=== PATIENT | male | born 1980 | race Caucasian/White ===

== ENCOUNTER 2016-08-18 02:15 | Emergency (ER) | payer MEDICAID ==
[2016-08-18] MEDS ORDERED: ASPIRIN 81 MG CHEW TAB ONE (02:35)
[2016-08-18] MEDS ORDERED: DUONEB INH ONE ×2 (03:19→03:20)
== END 2016-08-18 06:13 | disposition home or self-care (01) ==
LOC: ER 02:15
DX: R09.1 Pleurisy (principal); J44.1 Chronic obstructive pulmonary disease with (acute) exacerbation; F17.290 Nicotine dependence, other tobacco product, uncomplicated
CPT/HCPCS: 36415; 71010; 80053; 82550; 83735; 84484; 85025; 85379; 85610; 85730; 93005; 94640; 96374; 96375